=== PATIENT | male | born 1965 ===

== ENCOUNTER → 2016-12-09 | Outpatient (REF) ==
--- NOTE | 2016-12-10 05:19 | REP ---
Clinical: Pain. Technique: AP and lateral views of the right forearm. Findings: Osseous structures, joint spaces, and surrounding soft tissues are normal for age. No acute fracture dislocation. No obvious significant osteoarthritic degenerative changes. No subcutaneous emphysema or radiodense foreign body. Impression: Normal right forearm radiographs. Signed by Inocente Pizano MD 12/10/2016 05:10 A
--- NOTE | 2016-12-10 05:32 | REP ---
Clinical: Pain. Disability. Technique: AP, lateral, bilateral oblique views of the right wrist. Findings: Carpal bones, associated joint spaces and surrounding soft tissues appear normal for age. No overt osteoarthritic degenerative changes are appreciated. No evidence for acute or healed fracture. No subcutaneous emphysema or radiodense foreign body. Impression: Age-appropriate right wrist radiographs. Signed by Inocente Pizano MD 12/10/2016 05:23 A
--- NOTE | 2016-12-10 05:34 | REP ---
Clinical: Pain and disability. Technique: AP, lateral, coned-down views of the lumbosacral spine. Findings: Mild/moderate multilevel degenerative disc osteophyte complexes are appreciated primarily involving the lower thoracic and upper lumbar spine. Findings include small marginal osteophytes with endplate sclerosis/irregularity and minimal disc space narrowing. Mild hypertrophic facet changes are also suggested at the L5-L1 level. Alignment and lordosis maintained. No acute fracture / compression injury or subluxation. Impression: Mild to moderate multilevel degenerative changes. Signed by Inocente Pizano MD 12/10/2016 05:25 A
== END ==
LOC: M SMT 14:18
PROVIDERS: ATTEND Internal Medicine
DX: Z02.71 Encounter for disability determination (principal)